=== PATIENT | male | born 1960 | race Caucasian/White ===

== ENCOUNTER 2019-11-18 16:45 | Emergency (ER) | payer OTHER, SELFPAY ==
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
[2019-11-18 17:01] VITALS: BP 161/100; PULSE 96; RESP 20; TEMP 37.2; O2SAT 99
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
== END 2019-11-18 17:44 | disposition home or self-care (01) ==
PROVIDERS: Emergency Provider Emergency Medicine
DX: M54.6 Pain in thoracic spine (principal)
CPT/HCPCS: 71046; 74018; 81003; 99213; G0463